=== PATIENT | male | born 1960 | race Caucasian/White ===

== ENCOUNTER 2016-11-14 13:31 | Inpatient (IN) | payer MEDICARE, MEDICAID ==
[~2016-11-14] VITALS: Ht 147.3 cm; Wt 73.9 kg
--- NOTE | 2016-11-19 08:46 | ER ---
ADMIT: 11/14/2016 RM/LOC: 626 [facility] MR#: [id number] [address] [address] GELY CARO [address] [place] [address] Emergency Room Report SEX: M AGE: 55 : 1960 DATE: 11/14/2016 HISTORY OF PRESENT ILLNESS: A 55-year-old gentleman with osteogenesis imperfecta. Apparently, he has been having chronic femur pain on the right side. He has had x-rays which were negative. Apparently today, he stepped out of his vehicle, twisted his femur, and felt a pop, subsequently brought to the Emergency Department. PAST MEDICAL HISTORY: Osteogenesis imperfecta. PHYSICAL EXAMINATION: GENERAL: Reveals a 55-year-old gentleman, in no acute distress. LUNGS: Clear to auscultation. CARDIOVASCULAR: Regular rate and rhythm. ABDOMEN: Soft, nontender. EXTREMITIES: Significant for tenderness and swelling in the right femur. IMAGING DATA: CT scan was done as he reported negative x-rays in the recent past with similar pain. CT scan was read as a midshaft femur fracture. The patient was being admitted for same. DIAGNOSIS: Femur fracture. Davion Matthew MD/ shyanne JOB #: [id number] CC: Dann Khalil MD, Attending Physician Dann Khalil MD, Family Physician
--- NOTE | 2016-11-22 12:26 | OR ---
ADMIT: 11/14/2016 RM/LOC: 524 [facility] MR#: [id number] [facility]#: [id number] 2620 [facility] [address] [place], [place] [address] GELY CARO [address] [place] [address] Operative/Delivery Room Report SEX: M AGE: 55 : 1960 SURGERY DATE: 11/15/2016 SURGEON: Charlie Finney MD PREOPERATIVE DIAGNOSIS: Right femoral shaft fracture in a patient with osteogenesis imperfecta. POSTOPERATIVE DIAGNOSIS: Right femoral shaft fracture in a patient with osteogenesis imperfecta. PROCEDURE: Intramedullary nailing, right femur fracture. CHIEF DOG LICENSE INSPECTOR: PRABHA Cantu. ANESTHESIA: General. ESTIMATED BLOOD LOSS: 150 mL. COMPLICATIONS: None. CONDITION: Stable to recovery room. INDICATIONS: The patient is a 55-year-old male with osteogenesis imperfecta. He has had multiple fractures in his life. He has been seen in the office for some significant degenerative changes of his left hip, low back pain, stenosis as well as recently some right thigh pain. We did an initial x-ray, did not see any obvious fractures on this. Had him use some crutches, limited weightbearing. He returned back to the office with an improvement of symptoms. He was having pain just kind of right over the lateral aspect of his thigh. On Monday, he then got down out of his pickup, fell injuring his right lower extremity sustaining a right femur fracture, probably was something going on here previously, but he had no real history of injury or trauma prior to this. We discussed the injury as well as treatment options with him. At this point, he wanted to proceed with an intramedullary nailing. We discussed the procedure as well as risks and benefits with him. Questions were answered and he agreed to proceed. DESCRIPTION OF PROCEDURE: After informed consent was obtained, the patient was taken to the operating room, placed on the operating room table in supine position. General anesthetic was administered. After adequate general anesthesia, we used fluoroscopy, and we were able to get the fracture reduced. It was actually quite transverse here. The right lower extremity was then prepped and draped in the usual sterile fashion. Once this was completed, we made an incision in the midline just a little bit laterally here. Looking at the bow that the patient had in his femur, looked like he may have had a previous fracture of the distal femur here. Had some bowing both in the AP and lateral planes. Looking at the guidewire after we opened things up, it looked like we were going to have to shoot somewhat laterally in the notch to get the guidewire and nail to cross the fracture. We then placed a guidewire ADMIT: 11/14/2016 RM/LOC: 524 [facility] MR#: [id number] [address] [address] [place] [address] Operative/Delivery Room Report SEX: M AGE: 55 : 1960 into the distal femur. It was noted to be in good position in both the AP and lateral view. On the lateral view, we started this at Blumensaat's line. On the AP view, we started this lateral in the notch. Once this was completed and it appeared to be in good position in the distal portion of the femur, we then opened this up with a hand awl. We then attempted pass a ball-tipped guidewire and got stuck distal to the fracture site. Really, I was unable to get through here. We then used sharp hand reamers to ream across this, probably had some obliteration of the canal with some callus from previous injury here. We began with a 6 and got up to a 7, and we were able to cross the fracture site. Once this was completed, the ball-tipped guidewire was once again placed. We were able to cross the fracture and the fracture remained in good reduction at this point. Very small canal, we began reaming with an 8.5 end reamer up to 11 and elected to use a 9 mm nail. We measured this and used a 9 mm, 280 mm length nail. This was then passed over the ball- tipped guidewire and fully seated with light mallet taps. Once this was fully seated and the distal end of the nail was just underneath the articular surface, took fluoroscopic views. The nail appeared to be in good position, and the fracture was reduced. Once this was completed, we then used the guide for the distal locking screws. Made 2 small stab incisions. I drilled and placed 2 [id number] distal locking screws. These had moderate a bite. We then placed a 0 degree end cap on the nail. Once this was completed, attention was directed proximally using the C-arm and got perfect circles, placed 1 screw proximally in the dynamic slot. We made a stab incision, dissected down bluntly and then using the radiolucent drill, we drilled, measured, and placed a 32 mm proximal locking screw from anterior to posterior. It was noted to be in good position on fluoroscopic views as well. Once this was completed, final views were obtained. Fracture appeared to be reduced and the nail was in good position here. Once this was completed, the wounds were all copiously irrigated. The split in the lateral patellar retinaculum was reapproximated using #1 Vicryl in a [id number]-[id number]-hyyru fashion. We went laterally so we could get a starting point, then we would be able to cross the fracture. The wound was once again copiously irrigated. Subcutaneous tissues were closed using 2-0 Vicryl in a simple interrupted fashion. The skin was closed using skin cris. A sterile compressive dressing was then applied consisting of Xeroform, plain gauze, ABDs, Webril, and an Darío wrap from the foot to the thigh. The patient was then transferred to recovery room in stable condition. Charlie Finney MD/ shyanne JOB #: [id number] CC: Dann Khalil, Attending Physician Dann Khalil, Family Physician
--- NOTE | 2016-11-23 10:55 | CO ---
ADMIT: 11/14/2016 RM/LOC: 626 [facility] MR#: [id number] 2620 [facility] [address] [place] [id number] GELY CARO [address] [place] [address] Consultation SEX: M AGE: 55 : 1960 DATE OF CONSULTATION: 11/14/2016 ATTENDING PHYSICIAN: Dann Khalil CONSULTING PHYSICIAN: Charlie Dai MD CHIEF COMPLAINT: Right femur fracture. HISTORY OF PRESENT ILLNESS: This is a 55-year-old male with a history of osteogenesis imperfecta who has been treated by Dr. Finney for thigh pain for quite a while here. Had kind of just low energy, kind of fall with increased pain in the right leg. He came to the ER today. He was found on CT scan and x-ray to have a distal third femoral shaft fracture. We were consulted for evaluation and treatment. REVIEW OF SYMPTOMS: Otherwise negative. PAST MEDICAL AND SURGICAL HISTORY: He has osteogenesis imperfecta with multiple surgeries related to that, otherwise noncontributory. PHYSICAL EXAMINATION: GENERAL: He is awake, alert and oriented, in no acute distress. VITAL SIGNS: Afebrile, vital signs are stable. EXTREMITIES: In the right lower extremity, he has positive EHL, FHL. Sensation intact to light touch. 2+ DP pulse. Tender in the mid shaft of the femur. SKIN: Intact. DIAGNOSTIC DATA: X-rays shows a distal third shaft fracture with some bowing of the femur. ASSESSMENT: A 55-year-old with osteogenesis imperfecta with right femoral shaft fracture. PLAN: Keep him n.p.o., put him in [place]'s traction and then we will plan for IM mindy tomorrow with either Dr. Finney or myself. Charlie Dai MD/ shyanne JOB #: [id number] CC: Dann Khalil, Attending Physician Dann Khalil, Family Physician
[2016-11-28] MEDS ORDERED: CLARITIN DPS10 MG PO (12:54)
[2016-11-28] MEDS ORDERED: FEOSOL-DPS325 MG PO (12:55)
[2016-11-28] MEDS ORDERED: ULTRAM DPS50 MG PO (12:55)
[2016-11-28] MEDS ORDERED: DAILY MULTIPLE1 EAC1 PO (12:55)
[2016-11-28] MEDS ORDERED: HYDROCODON-ACE1 EAC6 PO (12:55)
[2016-11-28] MEDS ORDERED: VITAMIN D1000 UNIT PO (12:56)
[2016-11-28] MEDS ORDERED: ASCORBIC ACID500 MG PO (12:56)
[2016-11-28] MEDS ORDERED: ASA325 MG PO (12:57)
[2016-11-28] MEDS ORDERED: NEURONTIN DPS600 MG PO (12:57)
[2016-11-28] MEDS ORDERED: FLEXERIL DPS5 MG PO (12:57)
--- NOTE | 2016-12-04 16:25 | HP ---
ADMIT: 11/14/2016 RM/LOC: 626 [facility] MR#: [id number] ACC#: [id number] 2620 [facility] [address] [place] [phone] GELY [address]O [address] [place] [address] History and Physical SEX: M AGE: 55 : 1960 DATE OF SERVICE: CHIEF COMPLAINT: Right thigh pain. HISTORY OF PRESENT ILLNESS: This is a 55-year-old white male, normally cared for by Dr. Parr, who has osteogenesis imperfecta. Has been doctoring with Dr. Finney for the last month with right thigh pain. He thought maybe he had strained his quad or tore a quad muscle. He has been going to physical therapy. He went to physical therapy on Monday and reports he had a different therapist and she was quite aggressive, it was painful for him, so he did have more pain through the weekend and then today he hopped out of his pickup, felt a pop, ended up on the ground and was diagnosed with a right femur fracture. He presents to the emergency room for surgery and we are consulted for preoperative clearance. PAST MEDICAL HISTORY: Remarkable for osteogenesis imperfecta, DJD, gastroesophageal reflux disease, seasonal allergies. He has had multiple long- bone fractures, status post left total knee arthroplasty. He has right ankle surgery, left shoulder surgery, left leg surgery, lumbar DJD. CURRENT MEDICATIONS: Include: 1. Lortab. 2. Tramadol. 3. Loratadine. 4. Omeprazole. ALLERGIES: NONE. FAMILY HISTORY: Father with diabetes and coronary artery disease. Mother has osteogenesis imperfecta. SOCIAL HISTORY: Does not smoke. Occasional alcohol use. He is disabled. REVIEW OF SYSTEMS: GENERAL: No fevers or chills. HEENT: No headaches, blurry vision, double vision. CARDIAC: No chest pains or no shortness of breath. GASTROINTESTINAL: No nausea, vomiting, diarrhea, constipation. : No dysuria, urgency, or frequency. ENDOCRINE: No polyuria or polydipsia. PSYCH: No depression. INTEGUMENTARY: No new rashes. PHYSICAL EXAMINATION: VITAL SIGNS: Blood pressure is 157/95, pulse 120, respirations 10, temp 97.8. GENERAL: He is in no acute distress. He is alert and oriented. HEENT: Pupils are reactive. Conjunctivae are clear. Clear oropharynx. Moist mucous membranes. NECK: Soft and supple. LUNGS: Decreased breath sounds, but appeared clear. ADMIT: 11/14/2016 RM/LOC: 626 [facility] MR#: [id number] [address] [address] [place] [address] History and Physical SEX: M AGE: 55 : 1960 HEART: Sinus tachycardic, but regular. ABDOMEN: Soft. It is nontender. EXTREMITIES: No cyanosis, no clubbing, no significant edema. SKIN: No rash. NEUROLOGIC: Cranial nerves II through are XII are grossly intact. No focal deficits. LAB AND X-RAY DATA: Shows a white count of 13,700. Hemoglobin 14.7, platelets 400,000. INR 1.018. Sodium 146, potassium 3.6, chloride 114, CO2 of 21, BUN 10, creatinine 0.9, glucose 133, calcium 8.2, total bilirubin is 0.9. Total protein 6.6, albumin 3.5, alkaline phosphatase 96, AST 24, ALT 28, his calcium 8.6. X-ray revealed transverse mid femoral shaft fracture with slight angulation. ASSESSMENT: 1. Right femur fracture. 2. Gastroesophageal reflux disease. 3. Osteogenesis imperfecta. 4. Seasonal allergies. 5. Chronic pain. PLAN: We are going to put him OPO. He has no lab or x-ray findings concerning for complications of surgery. His EKG shows nothing acute. Would recommend proceeding with the procedure per Ortho. We will follow along in the perioperative period. Dann Khalil MD/ shyanne JOB #: [id number] CC: Dann Khalil, Attending Physician Dann Khalil, Family Physician
--- NOTE | 2017-01-23 10:20 | DS ---
ADMIT: 11/16/2016 RM/LOC: 524 [facility] MR#: [id number] ACC#: [id number] 2620 [facility] [address] [place], [place] [address] GORDO GELY Desmond [address] [place] [address] General Discharge Summary SEX: M AGE: 55 : 1960 ADMISSION DATE: 11/16/2016 DISCHARGE DATE: 11/18/2016 FINAL DIAGNOSIS: 1. Right femur fracture. 2. Osteogenesis imperfecta. 3. Gastroesophageal reflux disease. 4. Seasonal allergies. 5. Chronic pain. 6. Hypokalemia. REASON FOR ADMISSION: This is a 55-year-old, white male who had a 1-month history of right thigh pain. Had been doing physical therapy. Today he hopped out of his truck and felt his leg pop, suffered a right femur fracture. Therefore, he is being admitted for stabilization and surgery. HOSPITAL COURSE: He was admitted on 11/14/2016. Orthopedics was consulted. IV morphine was used for pain control. We gently rehydrated, did a blood work, had no obvious contraindications for surgery. On 11/15/2016, he had an okay night. He still was in quite a bit of pain. His potassium was mildly decreased so we did give him a dose of p.o. potassium. He underwent surgery at that point without complication, which Dr. Finney performed an IM rodding. We did start Lovenox for DVT prophylaxis on 11/16/2016. His potassium was still slightly low. We replaced that orally. He worked with PT. We then got Social Work involved in hopes that we could get him qualified for the IRU. On 11/17/2016, little change in status. On 11/18/2016, he had a good night. His pain was okay. He was felt stable for transfer to the IRU. DISCHARGE INSTRUCTIONS: 1. Claritin 10 mg daily. 2. Multivitamin daily. 3. Lovenox 40 mg subcu daily. 4. Flexeril 5 mg 1-2 t.i.d. p.r.n. 5. Lortab 10 mg q.4 hours p.r.n. 6. Senokot-S 1 b.i.d. p.r.n. 7. Tylenol 325 mg two tabs Q 4 hours p.r.n. Toe-touch weight bearing, regular diet, full code. PT and OT to follow. Follow up with Dr. Finney December 01. Dr. Gamble will follow in the Inpatient Rehabilitation Unit. Dann Khalil MD/ nimisha JOB #: [id number] CC: Dann Khalil MD, Attending Physician Dann Khalil MD, Family Physician
== END 2016-11-18 10:00 | disposition short-term general hospital (02) | DRG 481 ==
LOC: ER 13:31 → 6PED 17:26 → 5MS 11-15 15:34
PROVIDERS: ADMIT Family Medicine
PROC: 0QS836Z Reposition Right Femoral Shaft with Intramedullary Internal Fixation Device, Percutaneous Approach (ICD-10-PCS; principal; 2016-11-15)
DX: S72.301A Unspecified fracture of shaft of right femur, initial encounter for closed fracture (principal); Q78.0 Osteogenesis imperfecta; M19.90 Unspecified osteoarthritis, unspecified site; K21.9 Gastro-esophageal reflux disease without esophagitis; E66.9 Obesity, unspecified; E87.6 Hypokalemia; M51.36 Other intervertebral disc degeneration, lumbar region; W19.XXXA Unspecified fall, initial encounter; G89.29 Other chronic pain; Z96.652 Presence of left artificial knee joint; Z82.49 Family history of ischemic heart disease and other diseases of the circulatory system; Z68.31 Body mass index [BMI] 31.0-31.9, adult

== ENCOUNTER 2016-11-18 09:25 | Inpatient (IN) | payer MEDICARE, MEDICAID ==
[~2016-11-18] VITALS: Ht 147.3 cm; Wt 73.2 kg
[2016-11-28] MEDS ORDERED: CLARITIN DPS10 MG PO (12:54)
[2016-11-28] MEDS ORDERED: FEOSOL-DPS325 MG PO (12:55)
[2016-11-28] MEDS ORDERED: DAILY MULTIPLE1 EAC1 PO (12:55)
[2016-11-28] MEDS ORDERED: HYDROCODON-ACE1 EAC6 PO (12:55)
[2016-11-28] MEDS ORDERED: ULTRAM DPS50 MG PO (12:55)
[2016-11-28] MEDS ORDERED: ASCORBIC ACID500 MG PO (12:56)
[2016-11-28] MEDS ORDERED: VITAMIN D1000 UNIT PO (12:56)
[2016-11-28] MEDS ORDERED: NEURONTIN DPS600 MG PO (12:57)
[2016-11-28] MEDS ORDERED: ASA325 MG PO (12:57)
[2016-11-28] MEDS ORDERED: FLEXERIL DPS5 MG PO (12:57)
--- NOTE | 2016-12-30 08:52 | DS ---
ADMIT: 11/18/2016 RM/LOC: 601 [facility] MR#: [id number] 2620 [facility] [address] [place], [place] [address] GORDO GELY Desmond [address] [place] [address] General Discharge Summary SEX: M AGE: 55 : 1960 ADMISSION DATE: 11/18/2016 DISCHARGE DATE: 11/27/2016 DISCHARGE DIAGNOSIS: Orthopedic disorder 08.2 status post femur shaft fracture, F72.31S displaced transverse fracture of shaft of right femur, sequela onset 11/14/2016. Comorbid conditions per initial H and P. Other diagnoses per hospital course below. HOSPITAL COURSE: Please see my initial H and P for details prior to transfer to the IRU. Protonix changed to Pepcid to decrease risk of C. diff. Hydrocodone changed to q.3 hours p.r.n. for pain. Lab was monitored regularly. Lovenox was continued for DVT prophylaxis. Dietitian followed to optimize nutrition. Pharmacy followed to optimize medication management. Hemoglobin A1c was checked for hyperglycemia possible borderline diabetes. Pepcid adjusted. Maalox added p.r.n. for GERD. Acute blood loss anemia with iron deficiency, treated with Feosol and vitamin C. Pepcid discontinued and switched to Maalox p.r.n. Vitamin D deficiency replaced with vitamin D 3. Gabapentin started at night for insomnia and pain. The patient did have a new diagnosis of diabetes this admission. His hemoglobin A1c was at goal, however and so we did a diabetic diet and diabetic education prior to discharge. Neurontin was increased to 600 mg for insomnia and pain at night. Orthopedics saw the patient prior to discharge, and he was medically stable at the time of discharge. Please see IRU interdisciplinary discharge summary for details regarding progress in therapy. DISCHARGE DISPOSITION: Home with support from a friend, girlfriend. DISCHARGE MEDICATIONS: Please see discharge med rec. He was given #30 of Flexeril and 2 refills on that. Feosol and vitamin C should be continued for 1 month. Orthopedics wrote the prescription for hydrocodone. He can resume his tramadol, but no new prescription was given for that. Lovenox was discontinued and switched to aspirin 325 mg p.o. daily for DVT prophylaxis. FOLLOWUP: Dr. Finney on December 01, Dr. Parr as regularly scheduled. Karthikeyan Gamble MD/ shyanne JOB #: [id number] CC:
== END 2016-11-27 12:50 | disposition home or self-care (01) | DRG 560 ==
LOC: 6IRU 09:55
PROVIDERS: ADMIT Physical Medicine & Rehabilitation
PROC: F07Z9YZ Gait Training/Functional Ambulation Treatment using Other Equipment (ICD-10-PCS; principal; 2016-11-18)
PROC: F07Z5YZ Bed Mobility Treatment using Other Equipment (ICD-10-PCS; principal; 2016-11-18)
DX: S72.321D Displaced transverse fracture of shaft of right femur, subsequent encounter for closed fracture with routine healing (principal); Q78.0 Osteogenesis imperfecta; D62 Acute posthemorrhagic anemia; G89.4 Chronic pain syndrome; K21.9 Gastro-esophageal reflux disease without esophagitis; M15.9 Polyosteoarthritis, unspecified; E61.1 Iron deficiency; E55.9 Vitamin D deficiency, unspecified; M25.511 Pain in right shoulder; G47.00 Insomnia, unspecified; G89.18 Other acute postprocedural pain; K59.00 Constipation, unspecified; E11.9 Type 2 diabetes mellitus without complications; M47.9 Spondylosis, unspecified; Z96.652 Presence of left artificial knee joint